=== PATIENT | female | born 1980 | race Caucasian/White ===

== ENCOUNTER → 2017-12-03 | Outpatient (CLI) | payer SELFPAY ==
[~2017-12-03] MED LIST: ONDA4TAB97 PO; TRAM-420 PO
--- NOTE | 2017-12-03 15:30 | RADIOLOGY IMAGING REPORT ---
FACILITY: [facility] - [place] PATIENT NAME: Kandy Arndt : 1980 MR: [id number] V: [id number] EXAM DATE: ORDERING PHYSICIAN: SACHIN WOODS TECHNOLOGIST: Location: [facility] - [place] Patient: Kandy Arndt : 1980 Visit/Account:[id number] Date of Sevice: 12/03/2017 Renal ultrasound. HISTORY: Right flank pain, hematuria, possible renal stones. COMPARISON: None. Right renal length: 10.6 cm. Right renal cortical thickness: Normal. Right hydronephrosis: Borderline. Right perinephric fluid collections: No. Left renal length: 10.9 cm. Left renal cortical thickness: Normal. Left hydronephrosis: Borderline. Left perinephric fluid collections: No. Bladder prevoid volume: 246 ml. Bladder post void volume: 0 ml. Right ureteral jet: Present. Left ureteral jet: Present. The ureters are obscured. The abdominal aorta and inferior vena cava are partially obscured. No elliott l or ureteral calcifications are identified. IMPRESSION: Borderline bilateral hydronephrosis. Otherwise negative. The source of hematuria is not identified by this means. Report Dictated By: Efraín Benítez MD at 12/03/2017 3:22 PM Report E-Signed By: Efraín Benítez MD at 12/03/2017 3:27 PM WSN:[id number]
== END ==
LOC: RAD 14:17
PROVIDERS: ATTEND Nurse Practitioner Family
DX: R31.9 Hematuria, unspecified (principal); R10.31 Right lower quadrant pain
CPT/HCPCS: 76705